=== PATIENT | female | born 1995 | race Caucasian/White ===

== ENCOUNTER 2018-06-10 15:52 | Outpatient (CLI) | payer OTHER ==
[~2018-06-10] VITALS: Ht 157.5 cm; Wt 85.9 kg
[2018-06-10] MEDS ORDERED: PLEASE ENTER HEIGHT AND WEIGHT MC SCH (16:30)
[2018-06-10] MEDS ORDERED: PLEASE ENTER ALLERGIES MC SCH (16:30)
[2018-06-10 16:32] LABS: MICROSCOPIC NOT IND
[2018-06-10 16:46] VITALS: BP 115/70
== END 2018-06-10 20:14 | disposition home or self-care (01) ==
LOC: LDOP 15:52
PROVIDERS: ATTEND Obstetrics & Gynecology
DX: O24.013 Pre-existing type 1 diabetes mellitus, in pregnancy, third trimester (principal); E10.8 Type 1 diabetes mellitus with unspecified complications; O26.893 Other specified pregnancy related conditions, third trimester; R10.9 Unspecified abdominal pain; Z3A.32 32 weeks gestation of pregnancy
CPT/HCPCS: 36415; 59025; 76815; 76817; 81003; 82731; 99201; G0463

== ENCOUNTER 2018-07-21 10:25 | Inpatient (IN) | payer OTHER ==
[~2018-07-21] VITALS: Ht 157.5 cm; Wt 89.1 kg
[2018-07-21] MEDS ORDERED: OXYTOCIN 30U/ 0.9% NaCL 500ML 500 ML IV PRN (20:43)
[2018-07-21] MEDS ORDERED: OXYTOCIN 30U/ 0.9% NaCL 500ML 500 ML IV ONE (20:43)
[2018-07-21] MEDS: LACTATED RINGERS 1,000 ML IV SCH (20:57)
[2018-07-21] MEDS ORDERED: NEWBORN KIT ONE (20:57)
[2018-07-21] MEDS ORDERED: MISOPROSTOL 25 MCG TABLET ONE (20:57)
[2018-07-21] MEDS ORDERED: SODIUM CITRATE/CITRIC ACID 30 ML UDC PO PRN (21:00)
[2018-07-21] MEDS ORDERED: PENICILLIN GK 5,000,000 UNITS in DEXTROSE 5% 100 ML IVPB ONE (21:00)
[2018-07-21] MEDS ORDERED: FENTANYL PF 100 MCG/2ML IV PRN (21:00)
[2018-07-21] MEDS ORDERED: CALCIUM CARBONATE 500 MG TAB.CHEW PO PRN (21:00)
[2018-07-21] MEDS ORDERED: FENTANYL PF 100 MCG/2ML IVPush PRN (21:00)
[2018-07-21 21:25] LABS: BASOPHILS # (AUTO) 0.03 x10^3/uL (0-0.1); BASOPHILS % (AUTO) 0 % (0-1); EOSINOPHILS % (AUTO) 1 % (1-7); LYMPHOCYTES # (AUTO) 1.95 x10^3/uL (1-3.4); LYMPHOCYTES % (AUTO) 24 % (22-44); MD NO; MEAN CORPUSCULAR HEMOGLOBIN 26.7 pg (27.0-34.8); MEAN CORPUSCULAR HGB CONC 33.2 g/dL (32.4-35.8); MEAN CORPUSCULAR VOLUME 80.5 fL (80-100); MEAN PLATELET VOLUME 10.5 fL (7.4-10.4); MONOCYTES # (AUTO) 0.52 x10^3/uL (0.2-0.8); MONOCYTES % (AUTO) 7 % (2-9); NEUTROPHILS # (AUTO) 5.39 x10^3/uL (1.8-6.8); NEUTROPHILS % (AUTO) 68 % (42-75); PLATELET COUNT 228 x10^3/uL (130-400); RED BLOOD COUNT 3.95 x10^6/uL (3.82-5.3); RED CELL DISTRIBUTION WIDTH 13.1 % (9.6-15.2)
[2018-07-21] MEDS: MISOPROSTOL 25 MCG TABLET VG PRN (22:18)
[2018-07-22] MEDS: PENICILLIN GK 2,500,000 UNITS in DEXTROSE 5% 100 ML IVPB SCH ×7 (01:34→21:07)
[2018-07-22] MEDS ORDERED: MISOPROSTOL 25 MCG TABLET ONE (02:31)
[2018-07-22] MEDS: MISOPROSTOL 25 MCG TABLET VG PRN (02:38)
[2018-07-22] MEDS ORDERED: FENTANYL PF 100 MCG/2ML ONE ×3 (03:48→23:04)
[2018-07-22] MEDS: LACTATED RINGERS 1,000 ML IV SCH ×5 (04:25→20:43)
[2018-07-22] MEDS ORDERED: BUPIVACAINE 0.25% ONE ×3 (07:21→12:57)
[2018-07-22] MEDS ORDERED: INSU100V35 SC (07:24)
[2018-07-22] MEDS ORDERED: INSU100C SQ-INSULIN (07:25)
[2018-07-22] MEDS ORDERED: FLUO20SO2 HOMEMEDPO (07:29)
[2018-07-22] MEDS ORDERED: ROPIvacaine/PF 0.2% , 100 ML ONE (07:43)
[2018-07-22] MEDS ORDERED: FENTANYL/BUPIV./NS/PF 250 ML EPIDCONT SCH (07:49)
[2018-07-22] MEDS ORDERED: LACTATED RINGERS 1,000 ML IVBOLUS PRN (08:00)
[2018-07-22] MEDS ORDERED: PLEASE ENTER HEIGHT AND WEIGHT MC SCH (08:30)
[2018-07-22] MEDS ORDERED: MISOPROSTOL 200 MCG TABLET ONE (08:45)
[2018-07-22] MEDS ORDERED: OXYTOCIN 30U/ 0.9% NaCL 500ML 500 ML ONE ×2 (08:45→23:18)
[2018-07-22] MEDS ORDERED: LIDOCAINE 1%, 20ML ONE (08:45)
[2018-07-22] MEDS ORDERED: METOCLOPRAMIDE 5 MG/ML, 2ML ONE ×2 (08:48→19:36)
[2018-07-22] MEDS: METOCLOPRAMIDE 5 MG/ML, 2ML IVPush PRN ×2 (08:51→19:42)
[2018-07-22] MEDS ORDERED: ONDANSETRON 2MG/ML, 2ML ONE ×3 (10:19→23:04)
[2018-07-22] MEDS: ONDANSETRON 2MG/ML, 2ML IVPush PRN ×2 (10:24→19:43)
[2018-07-22] MEDS ORDERED: FENTANYL/BUPIV./NS/PF 250 ML EPIDCONT ONE (12:57)
[2018-07-22 17:38] LABS: BASOPHILS # (AUTO) 0.04 x10^3/uL (0-0.1); BASOPHILS % (AUTO) 0 % (0-1); EOSINOPHILS # (AUTO) 0.17 x10^3/uL (0-0.4); EOSINOPHILS % (AUTO) 1 % (1-7); LYMPHOCYTES # (AUTO) 1.38 x10^3/uL (1-3.4); LYMPHOCYTES % (AUTO) 11 % (22-44); MD NO; MEAN CORPUSCULAR HEMOGLOBIN 26.6 pg (27.0-34.8); MEAN CORPUSCULAR HGB CONC 33.3 g/dL (32.4-35.8); MEAN CORPUSCULAR VOLUME 79.7 fL (80-100); MEAN PLATELET VOLUME 10.1 fL (7.4-10.4); MONOCYTES # (AUTO) 0.61 x10^3/uL (0.2-0.8); MONOCYTES % (AUTO) 5 % (2-9); NEUTROPHILS # (AUTO) 10.06 x10^3/uL (1.8-6.8); NEUTROPHILS % (AUTO) 82 % (42-75); PLATELET COUNT 208 x10^3/uL (130-400); RED BLOOD COUNT 3.96 x10^6/uL (3.82-5.3); RED CELL DISTRIBUTION WIDTH 13.4 % (9.6-15.2)
[2018-07-22 17:44] LABS: ALANINE AMINOTRANSFERASE 12 U/L (12-78); ALBUMIN 2.3 g/dL (3.4-5.0); ANION GAP 8 mmol/L (5-15); CHLORIDE 110 mmol/L (98-107); CREATININE 0.79 mg/dL (0.55-1.02)
[2018-07-22 17:47] LABS: ALKALINE PHOSPHATASE 135 U/L (45-117); BILIRUBIN,TOTAL 0.8 mg/dL (0.2-1.0); TOTAL PROTEIN 5.7 g/dL (6.4-8.2)
[2018-07-22] MEDS ORDERED: SODIUM CITRATE/CITRIC ACID 30 ML UDC ONE (19:36)
[2018-07-22] MEDS ORDERED: OXYcodone IR 5MG TABLET PO PRN (23:00)
[2018-07-22] MEDS ORDERED: MORPHINE SULFATE 4 MG/ML, 1ML IVPush PRN (23:00)
[2018-07-22] MEDS ORDERED: IBUPROFEN 600 MG TABLET PO PRN (23:00)
[2018-07-22] MEDS ORDERED: MISOPROSTOL 200 MCG TABLET PR PRN (23:00)
[2018-07-22] MEDS ORDERED: ONDANSETRON 2MG/ML, 2ML IV PRN (23:00)
[2018-07-22] MEDS ORDERED: CEFAZOLIN 1,000 MG ONE (23:04)
[2018-07-22] MEDS ORDERED: OXYTOCIN 10 UNITS/ML, 1ML ONE (23:04)
[2018-07-22] MEDS ORDERED: HYDROmorphone 2 MG/ML, 1ML ONE (23:05)
[2018-07-22] MEDS ORDERED: LIDOCAINE-MPF 2% ,5ML ONE ×2 (23:05)
[2018-07-22] MEDS ORDERED: MIDAZOLAM 1 MG/ML, 2ML ONE (23:38)
[2018-07-22] MEDS ORDERED: KETOROLAC 30 MG/1 ML ONE ×2 (23:39)
[2018-07-23] MEDS ORDERED: METOPROLOL 1 MG/ML, 5ML ONE (00:02)
[2018-07-23] MEDS: LACTATED RINGERS 1,000 ML IV SCH ×4 (01:50→09:27)
[2018-07-23] MEDS: OXYTOCIN 30U/ 0.9% NaCL 500ML 500 ML IV SCH ×2 (01:50→09:00)
[2018-07-23 02:15] VITALS: BP 140/83
[2018-07-23] MEDS: OXYcodone/APAP 5/325MG TABLET PO PRN ×5 (03:48→21:23)
[2018-07-23] MEDS: KETOROLAC 30 MG/1 ML IV SCH ×3 (06:00→06:33)
[2018-07-23 06:30] VITALS: BP 130/81
[2018-07-23 08:00] VITALS: BP 113/77
[2018-07-23] MEDS: PRENATAL VIT/IRON/FA 1 EACH TABLET PO SCH (08:12)
[2018-07-23] MEDS: DOCUSATE 100 MG CAPSULE PO PRN ×2 (08:12→21:23)
[2018-07-23 08:46] LABS: MEAN CORPUSCULAR HEMOGLOBIN 26.1 pg (27.0-34.8); MEAN CORPUSCULAR HGB CONC 32.3 g/dL (32.4-35.8); MEAN CORPUSCULAR VOLUME 80.6 fL (80-100); MEAN PLATELET VOLUME 10.2 fL (7.4-10.4); PLATELET COUNT 228 x10^3/uL (130-400); RED BLOOD COUNT 3.18 x10^6/uL (3.82-5.3); RED CELL DISTRIBUTION WIDTH 13.2 % (9.6-15.2)
[2018-07-23] MEDS ORDERED: LIDOCAINE-MPF 1%, 2ML ONE (08:50)
[2018-07-23 08:56] LABS: ALANINE AMINOTRANSFERASE 10 U/L (12-78); ALBUMIN 1.8 g/dL (3.4-5.0); ANION GAP 7 mmol/L (5-15); CALCIUM 7.6 mg/dL (8.5-10.1); CHLORIDE 106 mmol/L (98-107); CREATININE 1.16 mg/dL (0.55-1.02)
[2018-07-23 08:58] LABS: ALKALINE PHOSPHATASE 116 U/L (45-117); BILIRUBIN,TOTAL 0.6 mg/dL (0.2-1.0); TOTAL PROTEIN 4.8 g/dL (6.4-8.2)
[2018-07-23 09:06] LABS: BASOPHILS # (AUTO) 0.03 x10^3/uL (0-0.1); BASOPHILS % (AUTO) 0 % (0-1); EOSINOPHILS % (AUTO) 0 % (1-7); LYMPHOCYTES # (AUTO) 1.42 x10^3/uL (1-3.4); LYMPHOCYTES % (AUTO) 8 % (22-44); MD SCAN; MONOCYTES # (AUTO) 0.94 x10^3/uL (0.2-0.8); MONOCYTES % (AUTO) 5 % (2-9); NEUTROPHILS % (AUTO) 87 % (42-75)
[2018-07-23 12:14] VITALS: BP 138/86
[2018-07-23 19:30] VITALS: BP 109/72
[2018-07-24] MEDS: OXYcodone/APAP 5/325MG TABLET PO PRN ×4 (04:38→19:38)
[2018-07-24 07:46] LABS: ALANINE AMINOTRANSFERASE 12 U/L (12-78); ALBUMIN 1.8 g/dL (3.4-5.0); ANION GAP 5 mmol/L (5-15); CALCIUM 7.8 mg/dL (8.5-10.1); CHLORIDE 111 mmol/L (98-107)
[2018-07-24 07:48] LABS: ALKALINE PHOSPHATASE 103 U/L (45-117); BILIRUBIN,TOTAL 0.2 mg/dL (0.2-1.0)
[2018-07-24 07:51] LABS: MEAN CORPUSCULAR HEMOGLOBIN 25.4 pg (27.0-34.8); MEAN CORPUSCULAR HGB CONC 31.5 g/dL (32.4-35.8); MEAN CORPUSCULAR VOLUME 80.4 fL (80-100); PLATELET COUNT 258 x10^3/uL (130-400); RED BLOOD COUNT 2.82 x10^6/uL (3.82-5.3); RED CELL DISTRIBUTION WIDTH 13.4 % (9.6-15.2)
[2018-07-24 08:00] VITALS: BP 116/75
[2018-07-24 08:04] LABS: BASOPHILS # (AUTO) 0.04 x10^3/uL (0-0.1); BASOPHILS % (AUTO) 0 % (0-1); EOSINOPHILS # (AUTO) 0.09 x10^3/uL (0-0.4); EOSINOPHILS % (AUTO) 1 % (1-7); LYMPHOCYTES # (AUTO) 1.71 x10^3/uL (1-3.4); LYMPHOCYTES % (AUTO) 14 % (22-44); MD SCAN; MONOCYTES # (AUTO) 0.59 x10^3/uL (0.2-0.8); MONOCYTES % (AUTO) 5 % (2-9); NEUTROPHILS # (AUTO) 9.77 x10^3/uL (1.8-6.8); NEUTROPHILS % (AUTO) 80 % (42-75)
[2018-07-24] MEDS: DOCUSATE 100 MG CAPSULE PO PRN ×2 (08:07→19:37)
[2018-07-24] MEDS: PRENATAL VIT/IRON/FA 1 EACH TABLET PO SCH (08:07)
[2018-07-24 12:25] VITALS: BP 110/75
[2018-07-24 20:49] VITALS: BP 116/75
[2018-07-25 01:00] VITALS: BP 116/75
[2018-07-25] MEDS: OXYcodone/APAP 5/325MG TABLET PO PRN ×4 (02:35→23:45)
[2018-07-25] MEDS ORDERED: MEASLES,MUMPS&RUBELLA VACC/PF 0.5 ML SQ-VACC ONE (06:00)
[2018-07-25] MEDS: DOCUSATE 100 MG CAPSULE PO PRN (08:27)
[2018-07-25] MEDS: PRENATAL VIT/IRON/FA 1 EACH TABLET PO SCH (08:27)
[2018-07-25 19:35] VITALS: BP 118/73
[2018-07-26 07:51] VITALS: BP 135/87
[2018-07-26] MEDS: PRENATAL VIT/IRON/FA 1 EACH TABLET PO SCH (09:14)
[2018-07-26] MEDS: OXYcodone/APAP 5/325MG TABLET PO PRN (09:14)
[2018-07-26] MEDS: DOCUSATE 100 MG CAPSULE PO PRN (09:14)
[2018-07-26] MEDS ORDERED: OXYC5CAP2 PO ×2 (09:23→09:24)
== END 2018-07-26 13:30 | disposition home or self-care (01) | DRG 788 ==
LOC: LDIP 19:56 → 2NW 07-23 01:47
PROVIDERS: ADMIT Obstetrics & Gynecology; ATTEND Obstetrics & Gynecology
PROC: 3E0P7VZ Introduction of Hormone into Female Reproductive, Via Natural or Artificial Opening (ICD-10-PCS; 2018-07-21)
PROC: 10D00Z1 Extraction of Products of Conception, Low, Open Approach (ICD-10-PCS; principal; 2018-07-22)
DX: O69.81X0 Labor and delivery complicated by cord around neck, without compression, not applicable or unspecified (principal); O24.92 Unspecified diabetes mellitus in childbirth; O99.02 Anemia complicating childbirth; D64.9 Anemia, unspecified; O12.04 Gestational edema, complicating childbirth; O62.1 Secondary uterine inertia; Z96.41 Presence of insulin pump (external) (internal); O99.824 Streptococcus B carrier state complicating childbirth; Z3A.38 38 weeks gestation of pregnancy; Z37.0 Single live birth
CPT/HCPCS: 36415; 80053; 82803; 85025; 86850; 86900; G0378; J0690; J1170; J1885; J2250; J2405; J2540; J3010; J3490; J2590; J2765; J7120

== ENCOUNTER 2019-06-05 14:47 | Emergency (ER) | payer OTHER ==
[~2019-06-05] VITALS: Ht 157.5 cm; Wt 85.5 kg
[~2019-06-05 14:47] MED LIST: FLUO20SO2 HOMEMEDPO; INSU100C SQ-INSULIN; INSU100V35 SC; OXYC5CAP2 PO
[2019-06-05] MEDS ORDERED: ONDANSETRON 2MG/ML, 2ML IVPush ONE (15:30)
[2019-06-05] MEDS ORDERED: SODIUM CHLORIDE FLUSH 10ML SYR IVF ONE (15:30)
[2019-06-05] MEDS ORDERED: SODIUM CHLORIDE 0.9% 1,000ML IVBOLUS ONE ×2 (15:30→17:00)
[2019-06-05] MEDS ORDERED: FAMOTIDINE 20 MG/2 ML IVPush ONE (15:30)
[2019-06-05 15:58] LABS: PH, VENOUS 7.372 pH (7.320-7.420)
[2019-06-05] MEDS ORDERED: ONDANSETRON ODT 4 MG ONE (15:58)
[2019-06-05] MEDS ORDERED: ONDANSETRON 2MG/ML, 2ML ONE (15:59)
[2019-06-05] MEDS ORDERED: FAMOTIDINE 20 MG/2 ML ONE (15:59)
--- NOTE | 2019-06-05 16:00 | NUR ---
PIV PLACED FROM WHICH LABS INCLUDINF VBG DRAWN THEN MEDICATED PER EMAR 1L NS STARTED WELL ANTACID/ANTINAUSEA
--- NOTE | 2019-06-05 16:05 | NUR ---
88/61, 87 PROVIDER MADE AWARE PATIENT REPORTS SIG NAUSEA/VOMITING AND POOR PO INTAKE X 3 DAYS
[2019-06-05 16:11] LABS: ALBUMIN 3.4 g/dL (3.4-5.0); ANION GAP 7 mmol/L (5-15); CALCIUM 8.3 mg/dL (8.5-10.1); CHLORIDE 108 mmol/L (98-107)
[2019-06-05 16:13] LABS: BASOPHILS % (AUTO) 0 % (0-1); EOSINOPHILS # (AUTO) 0.02 x10^3/uL (0-0.4); EOSINOPHILS % (AUTO) 0 % (1-7); LYMPHOCYTES # (AUTO) 0.89 x10^3/uL (1-3.4); LYMPHOCYTES % (AUTO) 13 % (22-44); MD NO; MEAN CORPUSCULAR HEMOGLOBIN 28.3 pg (27.0-34.8); MEAN CORPUSCULAR HGB CONC 33.4 g/dL (32.4-35.8); MEAN CORPUSCULAR VOLUME 84.7 fL (80-100); MEAN PLATELET VOLUME 8.3 fL (7.4-10.4); MONOCYTES # (AUTO) 0.42 x10^3/uL (0.2-0.8); MONOCYTES % (AUTO) 6 % (2-9); NEUTROPHILS # (AUTO) 5.49 x10^3/uL (1.8-6.8); NEUTROPHILS % (AUTO) 81 % (42-75); PLATELET COUNT 300 x10^3/uL (130-400); RED BLOOD COUNT 5.25 x10^6/uL (3.82-5.3); RED CELL DISTRIBUTION WIDTH 13.7 % (9.6-15.2)
[2019-06-05 16:35] VITALS: BP 95/60
[2019-06-05] MEDS ORDERED: KETOROLAC 30 MG/1 ML ONE (16:49)
--- NOTE | 2019-06-05 16:52 | NUR ---
TO XRAY AT 1650 MEDICATED PER EMAR FOR DEHYDRATION (2ND LITER OF NS) & CONTINUED ABD CRAMPING AT 5/10 STILL UNABLE TO VOID-HAS TRIED X2
[2019-06-05] MEDS ORDERED: KETOROLAC 30 MG/1 ML IVPush ONE (17:00)
--- NOTE | 2019-06-05 17:02 | NUR ---
ua sent nausea improved to 1/10, pain improved to 0/10
[2019-06-05 17:32] LABS: MICROSCOPIC INDICATED
[2019-06-05 17:56] LABS: CULTURE INDICATED? NO
== END 2019-06-05 18:36 | disposition home or self-care (01) ==
LOC: ED 16:12
DX: R11.2 Nausea with vomiting, unspecified (principal); E86.0 Dehydration; R19.7 Diarrhea, unspecified; M79.10 Myalgia, unspecified site; E11.9 Type 2 diabetes mellitus without complications
CPT/HCPCS: 36415; 74021; 80048; 81001; 82040; 82803; 84703; 85025; 96361; 96374; 96375; 99284; J1885; J2405; J3490; J7030